=== PATIENT | female | born 1940 | race Caucasian/White ===

== ENCOUNTER 2017-09-11 16:03 | Inpatient (IN) | payer MEDICARE ==
[~2017-09-11] VITALS: Ht 154.9 cm; Wt 160.1 kg
[2017-09-11] MEDS ORDERED: ARMTHY90PT PO (16:21)
[2017-09-11] MEDS ORDERED: ALBUTEROL/IPRATROPIUM 3 ML NEB NEB ONE (16:35)
--- NOTE | 2017-09-11 16:35 | ER Report ---
History and Physical Time Seen By MD: 16:22 Hx. of Stated Complaint: PATIENT REPORTS DIARRHEA FOR THE LAST 2 MONTHS. SHE DENIES NAUSEA OR VOMITING HPI/ROS CHIEF COMPLAINT: Shortness of breath and diarrhea HISTORY OF PRESENT ILLNESS: This is a 77-year-old female who presents to the emergency department via EMS for shortness of breath and diarrhea. Patient is morbidly obese, states over the last 3 months she's had intermittent diarrhea however in the last 4 days she's had liquid diarrhea which she is a tripping to her furosemide that she started several months ago. Patient also states that she 's had increased shortness of breath over the last several months she feels secondary to taking the furosemide as well. Patient states that she has had an increase in shortness of breath over the last several days as well, no chest pain, no nausea or vomiting. No headaches. Patient also states that she has increased lower extremity edema secondary to the furosemide, with blisters on her lower extremities. No fevers, no aches or chills. REVIEW OF SYSTEMS: Constitutional: No fever, no chills. Eyes: No discharge. ENT: No sore throat. Cardiovascular: No chest pain, no palpitations. Respiratory: As above. Gastrointestinal: As above. Genitourinary: No hematuria. Musculoskeletal: No back pain. Skin: As above. Neurological: No headache. Allergies: Coded Allergies: Penicillins (Verified Allergy, Unknown, 09/11/17) DOESN'T REMEMBER REACTION Home Meds Reported Medications Thyroid (ARMOUR THYROID) 90 Mg Tab, 90 MG PO QDAY, TAB 09/11/17 Past Medical/Surgical History Patient has a past medical and surgical history of some undiagnosed respiratory disease, chronic diarrhea, hypothyroidism, morbidly obese. Reviewed Nurses Notes: Yes Hx Substance Use Disorder: No Hx Alcohol Use: No Constitutional Vital Sign - Last 24 Hours 09/11/17 09/11/17 09/11/17 09/11/17 16:05 16:05 16:33 16:50 Temp 97.9 Pulse 83 75 72 Resp 20 18 B/P (MAP) 144/73 144/73 (96) Pulse Ox 91 97 O2 Delivery Room Air 09/11/17 09/11/17 09/11/17 09/11/17 16:50 16:55 17:03 17:33 Pulse 73 70 70 Resp 18 26 Pulse Ox 98 98 99 O2 Delivery Nasal Cannula O2 Flow Rate 8.0 09/11/17 09/11/17 09/11/17 09/11/17 17:38 17:53 18:08 18:23 Pulse 69 71 69 69 Resp 13 23 17 Pulse Ox 96 98 98 09/11/17 09/11/17 09/11/17 09/11/17 18:38 18:52 18:53 19:08 Pulse 68 71 70 Resp 22 28 B/P (MAP) 160/94 (116) Pulse Ox 95 09/11/17 09/11/17 19:23 19:30 Pulse 70 69 Resp 13 23 Pulse Ox 96 96 Intake and Output 09/11/17 09/11/17 09/12/17 15:00 23:00 07:00 Intake Total 1000 ml Balance 1000 ml Physical Exam General Appearance: The patient is alert, has no immediate need for airway protection and no signs of toxicity, patient's is pursing lips however not in respiratory distress, she is morbidly obese and has a strong odor of stool and yeast. Eyes: Pupils equal and round no pallor or injection, icterus to both sclera. ENT, Mouth: Mucous membranes are moist. Respiratory: There are no retractions, lungs are clear to auscultation. Cardiovascular: Regular rate and rhythm, no murmurs, clicks or rubs. Heart sounds very distant. Gastrointestinal: Morbidly obese abdomen, soft and nontender distant but active bowel sounds. No masses or abdominal bruits. Neurological: Alert and oriented 4. Moving all extremities. Following all commands. No focal neuro deficits. Skin: Warm and dry, no rashes. Poor distal circulation to the lower extremities , nonpitting edema with blanchable, non-oozing blisters to the anterior surface of the lower legs bilaterally. Erythema to the lower extremities bilaterally, no cellulitis. Musculoskeletal: Neck is supple non tender. Extremities are nontender, nonswollen and with limited range of motion due to the size of the lower extremities.. DIFFERENTIAL DIAGNOSIS: After history and physical exam differential diagnosis was considered for shortness of breath including but not limited to pulmonary infectious process, COPD, asthma, pulmonary embolus and congestive heart failure. Medical Decision Making Data Points Result Diagram: 09/11/17 1700 09/11/17 1558 Laboratory Hematology Test 09/11/17 15:58 09/11/17 17:00 09/11/17 19:07 Sodium Level 146 mmol/L (137-145) Potassium Level 3.9 mmol/L (3.5-5.0) Chloride Level 104 mmol/L (98-107) Carbon Dioxide Level 22 mmol/L (22-31) Blood Urea Nitrogen 21 mg/dl (7-18) Creatinine 2.10 mg/dl (0.52-1.04) Glomerular Filtration Rate Calc 23.0 Random Glucose 134 mg/dl (75-110) Calcium Level 9.2 mg/dl (8.4-10.2) Total Bilirubin 5.7 mg/dl (0.2-1.3) Aspartate Amino Transf (AST/SGOT) 32 U/L (0-35) Alanine Aminotransferase (ALT/SGPT) 18 U/L (0-56) Alkaline Phosphatase 101 U/L (0-126) Total Protein 7.4 g/dl (6.3-8.2) Albumin 3.8 g/dl (3.5-5.0) Red Blood Count 6.17 M/uL (4.17-5.56) Mean Corpuscular Volume 88.6 fL (80.0-96.0) Mean Corpuscular Hemoglobin 29.3 pg (26.0-33.0) Mean Corpuscular Hemoglobin Concent 33.1 g/dL (32.0-36.0) Red Cell Distribution Width 20.5 % (11.5-14.5) Mean Platelet Volume 11.4 fL (7.2-11.1) Neutrophils (%) (Auto) 78.6 % (39.4-72.5) Lymphocytes (%) (Auto) 12.1 % (17.6-49.6) Monocytes (%) (Auto) 8.6 % (4.1-12.4) Eosinophils (%) (Auto) 0.2 % (0.4-6.7) Basophils (%) (Auto) 0.5 % (0.3-1.4) Nucleated RBC Relative Count (auto) 0.2 /100WBC Neutrophils # (Auto) 7.5 K/uL (2.0-7.4) Lymphocytes # (Auto) 1.2 K/uL (1.3-3.6) Monocytes # (Auto) 0.8 K/uL (0.3-1.0) Eosinophils # (Auto) 0.0 K/uL (0.0-0.5) Basophils # (Auto) 0.0 K/uL (0.0-0.1) Nucleated RBC Absolute Count (auto) 0.02 K/uL Peripheral Blood Smear No Y/N B-Type Natriuretic Peptide 477 pg/ml (0-100) Troponin I 0.054 ng/ml Chemistry Test 09/11/17 15:58 09/11/17 17:00 09/11/17 19:07 Glomerular Filtration Rate Calc 23.0 Calcium Level 9.2 mg/dl (8.4-10.2) Total Bilirubin 5.7 mg/dl (0.2-1.3) Aspartate Amino Transf (AST/SGOT) 32 U/L (0-35) Alanine Aminotransferase (ALT/SGPT) 18 U/L (0-56) Alkaline Phosphatase 101 U/L (0-126) Total Protein 7.4 g/dl (6.3-8.2) Albumin 3.8 g/dl (3.5-5.0) White Blood Count 9.6 k/uL (4.5-11.0) Red Blood Count 6.17 M/uL (4.17-5.56) Hemoglobin 18.1 g/dL (12.0-16.0) Hematocrit 54.7 % (34.0-47.0) Mean Corpuscular Volume 88.6 fL (80.0-96.0) Mean Corpuscular Hemoglobin 29.3 pg (26.0-33.0) Mean Corpuscular Hemoglobin Concent 33.1 g/dL (32.0-36.0) Red Cell Distribution Width 20.5 % (11.5-14.5) Platelet Count 123 K/uL (150-450) Mean Platelet Volume 11.4 fL (7.2-11.1) Neutrophils (%) (Auto) 78.6 % (39.4-72.5) Lymphocytes (%) (Auto) 12.1 % (17.6-49.6) Monocytes (%) (Auto) 8.6 % (4.1-12.4) Eosinophils (%) (Auto) 0.2 % (0.4-6.7) Basophils (%) (Auto) 0.5 % (0.3-1.4) Nucleated RBC Relative Count (auto) 0.2 /100WBC Neutrophils # (Auto) 7.5 K/uL (2.0-7.4) Lymphocytes # (Auto) 1.2 K/uL (1.3-3.6) Monocytes # (Auto) 0.8 K/uL (0.3-1.0) Eosinophils # (Auto) 0.0 K/uL (0.0-0.5) Basophils # (Auto) 0.0 K/uL (0.0-0.1) Nucleated RBC Absolute Count (auto) 0.02 K/uL Peripheral Blood Smear No Y/N B-Type Natriuretic Peptide 477 pg/ml (0-100) Troponin I 0.054 ng/ml EKG/Imaging EKG Interpretation 12 lead EKG: Time of EKG 1635. Rhythm: Normal sinus rhythm, ventricular rate 74 bpm. [place]: Right ventricular hypertrophy. QRS: normal ST segments: Possible incomplete right bundle branch block. Also questionable ST depression in V2, the one with flattened to flip T waves in V2, V3. No previous EKGs for comparison. 12 lead EKG: Repeat EKG time 1901. Rhythm: Sinus rhythm with a first-degree AV block. [place]: Right ventricular hypertrophy. QRS: normal ST segments: Possible incomplete right bundle branch block. Also questionable ST depression in V2, the one with flattened to flip T waves in V2, V3 Imaging EXAMINATION: Chest 2 Views HISTORY: Shortness of breath. COMPARISON: None. FINDINGS: Technically limited exam due to patient body habitus. Left basilar opacity may represent atelectasis or infiltrate. There are small bilateral pleural effusions. Cardiac enlargement, with mild central pulmonary vascular congestion. No evidence of angelina pulmonary edema. No pneumothorax. Aortic calcification. IMPRESSION: 1. Small pleural effusions with left basilar atelectasis or infiltrate. 2. Cardiac enlargement with mild central pulmonary vascular congestion. No angelina pulmonary edema. Report Dictated By: Kirk Macedo MD at 09/11/2017 6:11 PM Report E-Signed By: Kirk Macedo MD at 09/11/2017 6:13 PM [id number] ED Course/Re-evaluation Clinical Indication for ER IV: IV Access ED Course The patient was admitted to room. A history and physical were obtained. Differential diagnoses were considered. An IV was started. A CBC, CMP, troponin , BNP, stool studies and UA were ordered. CBC showing hemoglobin 18.1, hematocrit 54.7, BUN 21 creatinine 2.10, blood sugar 134. 1st troponin 0.060, repeat troponin 0.054. BNP 477. Chest x-ray showing pulmonary congestion, cardiomegaly.As well as small pleural effusions. Patient was given 324 mg baby aspirin. EKG showing normal sinus rhythm, with a possible incomplete right bundle branch block, no ST depression or elevation identified, there are flattened and flipped T waves in V2 and 3. No previous EKG comparison. Unable to collect stool samples. I did review these results with the patient and her sister. I did tell patient that she does have some heart strain probably related to the congestive heart failure right sided heart strain. With the elevated BNP, BUN and creatinine I did tell the patient I was concerned that the heart strain could continue to worsen therefore I feel an admission would be in her best interest. Patient was in agreement with this. I did speak with Dr. Beckford the hospitalist, he is accepted the patient into his services. Patient will be admitted to the medical unit for congestive heart failure. 09/11/2017 8:15:18 pm I did speak with Dr. Beckford the hospitalist on-call he has agreed to admit the patient to the medical unit following the repeat troponin down from 0.060 now down to 0.054. Decision to Disposition Date: Sep 11, 2017 Decision to Disposition Time: 20:14 Depart Departure Latest Vital Signs Vital Signs Date Time Temp Pulse Resp B/P (MAP) Pulse Ox O2 Delivery O2 Flow Rate FiO2 09/11/17 19:30 69 23 96 09/11/17 18:52 160/94 (116) 09/11/17 16:50 Nasal Cannula 8.0 09/11/17 16:05 97.9 Impression: Primary Impression: Congestive heart failure Additional Impression: Diarrhea Condition: Improved Disposition: Admitted from ER Problem Qualifiers Primary Impression: Congestive heart failure Heart failure type: right-sided Heart failure chronicity: unspecified Qualified Codes: I50.810 - Right heart failure, unspecified Additional Impression: Diarrhea Diarrhea type: unspecified type Qualified Codes: R19.7 - Diarrhea, unspecified GURMEET JANSEN WELLNESS MANAGER-BC Sep 11, 2017 16:34
[2017-09-11 17:32] LABS: PLATELET COUNT, AUTOMATED 123 K/uL (150-450)
--- NOTE | 2017-09-11 17:50 | EKG ---
FACILITY: [facility] PATIENT NAME: DARÍO AGUIRRE : [id number] MR: [id number] V: [id number] EXAM DATE: ORDERING PHYSICIAN: GURMEET JANSEN TECHNOLOGIST: RODO Ramos Reason : Blood Pressure : / mmHG Vent. Rate : 074 BPM Atrial Rate : 074 BPM P-R Int : 204 ms QRS Dur : 124 ms QT Int : 430 ms P-R-T Axes : 029 136 142 degrees QTc Int : 477 ms Normal sinus rhythm Right ventricular hypertrophy Lateral infarct , age undetermined Inferior injury pattern ACUTE CT Abnormal ECG No previous ECGs available Confirmed by NUVIA REID ([id number]) on 09/12/2017 2:49:38 PM Referred By: IZZY Confirmed By:NUVIA REID
[2017-09-11] MEDS ORDERED: ASPIRIN 81 MG CHEW PO ONE (18:05)
--- NOTE | 2017-09-11 18:17 | RADIOLOGY IMAGING REPORT ---
FACILITY: [facility] - [place] PATIENT NAME: Jose Camarena : 1940 MR: [id number] V: [id number] EXAM DATE: ORDERING PHYSICIAN: GURMEET JANSEN TECHNOLOGIST: Location: [facility] [place] Patient: Jose Camarena : 1940 Visit/Account:[id number] Date of Sevice: 09/11/2017 EXAMINATION: Chest 2 Views HISTORY: Shortness of breath. COMPARISON: None. FINDINGS: Technically limited exam due to patient body habitus. Left basilar opacity may represent atelectasis or infiltrate. There are small bilateral pleural effus ions. Cardiac enlargement, with mild central pulmonary vascular congestion. No evidence of angelina pulmonary edema. No pneumothorax. Aortic calcification. IMPRESSION: 1. Small pleural effusions with left basilar atelectasis or infiltrate. 2. Cardiac enlargement with mild central pulmonary vascular congestion. No angelina pulmonary edema. Report Dictated By: Kirk Macedo MD at 09/11/2017 6:11 PM Report E-Signed By: Kirk Macedo MD at 09/11/2017 6:13 PM [id number]
[2017-09-11] MEDS ORDERED: EMS NS 0.9%(*) 1000 ML BAG 1,000 ML IV ONE (19:40)
[2017-09-11 21:20] VITALS: BP 156/107
--- NOTE | 2017-09-11 21:36 | EKG ---
FACILITY: [facility] - [place] PATIENT NAME: DARÍO AGUIRRE : [id number] MR: [id number] V: [id number] EXAM DATE: ORDERING PHYSICIAN: GURMEET JANSEN TECHNOLOGIST: SYDNEY Test Reason : ELEVATED TROPONIN Blood Pressure : / mmHG Vent. Rate : 071 BPM Atrial Rate : 071 BPM P-R Int : 216 ms QRS Dur : 122 ms QT Int : 696 ms P-R-T Axes : 031 143 137 degrees QTc Int : 756 ms Sinus rhythm with 1st degree AV block Right ventricular hypertrophy Lateral infarct (cited on or before 11-SEP-2017) Inferior injury pattern ACUTE ND Abnormal ECG When compared with ECG of 11-SEP-2017 16:35, QT has lengthened Confirmed by NUVIA REID ([id number]) on 09/12/2017 2:50:19 PM Referred By: Confirmed By:NUVIA REID
[2017-09-11] MEDS ORDERED: ONDANSETRON 4 MG/2 ML VIAL IVP PRN (22:20)
[2017-09-11] MEDS ORDERED: [UNRECOGNIZED DRUG - OTHER] TP SCH (22:20)
[2017-09-11] MEDS ORDERED: FUROSEMIDE 40 MG/4 ML VIAL IVP ONE (22:20)
[2017-09-11] MEDS ORDERED: ACETAMINOPHEN 325 MG TAB PO PRN (22:20)
[2017-09-11] MEDS ORDERED: NYSTATIN 100,000 U/GM PWD 15GM ONE (22:39)
--- NOTE | 2017-09-12 00:08 | History & Physical ---
History of Present Illness Chief Complaint Shortness of breath and diarrhea History of Present Illness Mrs. Camarena is a 77-year-old female with PMH of Hypothyroidism, Morbid Obesity who presented to the emergency department via EMS for shortness of breath and diarrhea. Patient mentioned that over the last 3 months she has been having intermittent diarrhea however in the last 4 days she had liquid diarrhea. Patient also stated that she's had increased shortness of breath over the last several months. Her shortness of breath over the last several days got worse without chest pain, no nausea or vomiting, no headaches, no fevers, or chills. Patient also stated that her lower extremity edema got worse, with blisters on her lower extremities. She stopped her Lasix because she thought her Lasix was causing these symptoms. Initial ER evaluation revealed her hemoglobin 18.1, hematocrit 54.7, BUN 21 creatinine 2.10, blood sugar 134. Her 1st troponin was 0.060 and repeat troponin was down to 0.054 and BNP 477. Chest x-ray showing pulmonary congestion , cardiomegaly with small pleural effusions with left basilar atelectasis or infiltrate but no angelina pulmonary edema. Patient was given 324 mg baby aspirin. EKG showing normal sinus rhythm, with a possible incomplete right bundle branch block, no ST depression or elevation identified, there are flattened and flipped T waves in V2 and 3. I discussed the case with the ER-MD and admitted the patient for further evaluation and management. History Home Meds Reported Medications Thyroid (ARMOUR THYROID) 90 Mg Tab, 90 MG PO QDAY, TAB 09/11/17 Allergies: Coded Allergies: Penicillins (Verified Allergy, Unknown, 09/11/17) DOESN'T REMEMBER REACTION Patient History: FH: diabetes mellitus MOTHER BROTHER OR SISTER FH: obesity BROTHER OR SISTER BROTHER OR SISTER BROTHER OR SISTER FH: skin cancer BROTHER OR SISTER Hx Smoking: No Caffeine Intake: Soda Caffeine/Cups Per Day: OCCASSIONAL Hx Alcohol Use: No Hx Substance Use Disorder: No Review of Systems Constitutional: Other (morbid obesity), No Fever, No Weight Loss, No Weight Gain, No Chills Neurological: No Confusion, No Weakness, No Dizziness Cardiovascular: No Chest Pain, No Palpitations Respiratory: Shortness of Breath, No Cough Gastrointestinal: Nausea, No Vomiting, Diarrhea, No Constipation, No Abdominal Pain Genitourinary: No Dysuria, No Hematuria Musculoskeletal: Impaired Mobility, No Pain, No Sprain, No Strain Psychiatric: No Depression, No Anxiety Exam Vital Signs Vital Signs Date Time Temp Pulse Resp B/P (MAP) Pulse Ox O2 Delivery O2 Flow Rate FiO2 09/12/17 03:09 98.6 73 18 129/75 (93) 93 Nasal Cannula 4.0 General Appearance: Alert, Awake, No Acute Distress, Afebrile Neuro: No Gross deficits Eyes: PERRLA ENT: Normal Neck: Other (large neck circumfrence) Cardiovascular: Normal Rhythm & Peripheral Pulses Respiratory: Other (mild respiratory distress) GI: Abd Soft and Non-Tender (obese, NT/ND, no rebound or tenderness, Generalized erythematous skin with excoriations) Extremities: Edema (with chronic skin changes with erythema) Psych: Alert & Oriented X3, Appropriate Mood & Affect Medical Decision Making Data Points Result Diagram: 09/11/17 1700 09/11/17 1558 EKG / Imaging Monitor Interpretation: Normal Sinus Rhythm Pre-Admit Course ED Medications reviewed Medical Record Review: Yes Assessment and Plan Problems: (1) Fluid overload Status: Acute Assessment & Plan: Generalized edema likely due to her R-sided heart failure I will admit this patient to medical floor for further evaluation and management I will start Lasix 80mg IV bid I will place Ann catheter I will get Echo in am I will Get BMP, BNP, Troponin in am I will start Heparin 5000units q12h for DVTP (2) CHARANJIT (acute kidney injury) Status: Acute Assessment & Plan: I will care fully use Lasix and check her kidney function closely I will get BMP in am (3) Diarrhea Status: Acute Assessment & Plan: Her diarrhea has somewhat improved I will use Imodiunm as needed (4) Fungal infection of skin of abdomen Status: Chronic Assessment & Plan: I will use Nystatin powder for her chronic yeast infection Central Venous Access Medical Necessity for Access: IV Access, Medication Administration Time Spent on Plan of Care: > 30 min Copies to: ALINE ZACARIAS Venous Thromboembolism VTE Risk Physician Assess for VTE Risk: Yes VTE Diagnostic Test 2 Days Prior to Admit: No Antithrombotics Is Pt On Any Antithrombotics?: No Exam Sepsis Risk: No Definite Risk Problem Qualifiers (1) Diarrhea: Diarrhea type: unspecified type Qualified Codes: R19.7 - Diarrhea, unspecified RED WILLIS MD Sep 12, 2017 00:08
[2017-09-12 03:09] VITALS: BP 129/75
[2017-09-12 06:21] LABS: PLATELET COUNT, AUTOMATED 113 K/uL (150-450)
[2017-09-12] MEDS ORDERED: FUROSEMIDE 40 MG/4 ML VIAL IVP SCH (09:00)
[2017-09-12] MEDS ORDERED: HEPARIN (PORC) 5000 UN/ML VIAL SC SCH (09:00)
[2017-09-12 09:14] VITALS: BP 137/78
[2017-09-12] MEDS: THYROID 60 MG TAB PO SCH (09:17)
[2017-09-12] MEDS ORDERED: ENOXAPARIN 40 MG/0.4ML SYR SC ONE (09:50)
[2017-09-12] MEDS: NYSTATIN 100,000 U/GM PWD 15GM TP SCH ×2 (11:23→20:37)
[2017-09-12 11:24] VITALS: BP 135/81
--- NOTE | 2017-09-12 12:37 | Hospitalist Progress Note ---
Subjective Progress Notes Subjective This patient was admitted for diarrhea and shortness of breath. She had no acute issues overnight. Patient Complains of: Cardiovascular: No: Chest Pain Respiratory: No: Shortness of Breath Physical Exam Vital Signs Date Time Temp Pulse Resp B/P (MAP) Pulse Ox O2 Delivery O2 Flow Rate FiO2 09/12/17 11:24 98.2 71 20 135/81 (99) 92 Nasal Cannula 4.0 Intake and Output 09/13/17 07:00 Intake Total 240 ml Balance 240 ml Intake Oral 240 ml Neuro: No Gross deficits Cardiovascular: Regular Rate and Rhythm Respiratory: Clear to Auscultation GI: Soft and Non-Tender Extremities: Other (Bilateral weeping edema. There is erythema about both lower extremities, but does not appear to be infected.) Result Diagram: 09/12/17 0550 09/12/17 0550 Monitor Interpretation: Normal Sinus Rhythm Assessment and Plan Problems: (1) Peripheral edema Assessment & Plan: She does have diffuse peripheral edema. She did not respond to Lasix overnight. Her BNP is elevated, but an echocardiogram is pending. We will hold on further attempts at diuresis until those results are available. (2) Acute renal failure Assessment & Plan: Her creatinine is elevated, but we have no baseline to compare. We will repeat a chemistry panel in the morning. (3) Diarrhea Status: Acute Assessment & Plan: Her diarrhea has improved with Imodium. (4) Fungal infection of skin of abdomen Status: Chronic Assessment & Plan: She has been placed on Nystatin powder. (5) Failure to thrive Assessment & Plan: It is reported that she is limited to a recliner at home. She was also soiled with urine and feces at admission. A social work consult has been ordered. (6) Morbid obesity with BMI of 60.0-69.9, adult Central Venous Access Medical Necessity for Access: IV Access, Medication Administration Exam Sepsis Risk: No Definite Risk Problem Qualifiers (1) Diarrhea: Diarrhea type: unspecified type Qualified Codes: R19.7 - Diarrhea, unspecified NUVIA REID DO Sep 12, 2017 12:37
[2017-09-12 12:59] VITALS: Ht 154.9 cm; Wt 160.1 kg
--- NOTE | 2017-09-12 13:12 | Medical Nutrition Therapy ---
Nutrition Anthropometrics Height (Inches): 61.00 Height (Calculated Centimeters: 154.967701 Weight (Pounds): 365 Weight (Calculated Kilograms): 165.561 [place] Nutrition Score: Adequate [place] Nutrition Risk Score: 13 Dietary Referral Nutrition Risk Factors: Nutrition Risk Comment: Physical Findings Physical Appearance: Morbidly Obese 40+ Skin Appearance Skin Appearance: Edema Edema Location Modifier: Both Edema Location: Leg Type of Edema: Degree of Edema: Gastrointestinal Symptoms GI Symtoms: Diarrhea Tube Present: Bowel Sounds: Recent Bowel Pattern: Diarrhea, Incontinent Stool Characteristics: Nutrition/Food History No Significant Nutr. HX Nutritional Diagnosis Nutritional Risk Acuity 1: Acute/ES Renal Nutritional Risk Acuity 3: Morbid Obesity Past Medical History: Hypothyroidism, Morbid Obesity, Heart failure Nutritional Acuity: 1-High Nutrition Diagnosis: Decreased Nutrient Needs, Over-weight/Obesity Nutrition Etiology: Excesssive Nutr. Intake, Physiological Causes Nutrition Problem/Etiology/Sym: Overweight/Obesity related to excessive energy intake and physical inactivity AEB BMI of 69.0 Decreased Nutrient Needs r/t heart failure AEB Conditions associated with a diagnosis or treatment that require a specific type and/or amount of nutrient, e.g., heart failure (sodium, fluid) Energy Requirement: 1800 ([place]-St Jeor: Adjusted BW X 1.3) Protein Requirement: 66 (Adjusted BW Kg X .7) Diet Type: CHF Diet Nutrition Intervention: Cont diet as ordered Nutrition Monitoring & Eval Nutrition Goals: Eat 50-100% Meal RD Patient Assessment Time: [address] Assessment Type: RD Assessment Patient Nutrition Acuity: 1-High Follow Up Date: Sep 14, 2017 Nutritional Comment: 09/12 Pt admitted with LE edema and ARF. Alb 3.8, BNP 399, High BUN/Creat. Class III obesity with BMI of 69.0. Pt receiving CHF diet with only reported intake of soda. Follow labs, intake, clinical progression, etc. -JUAN MANUEL ARAGON Sep 12, 2017 13:12
[2017-09-12 14:25] VITALS: BP 128/75
[2017-09-12 19:28] VITALS: BP 128/66
[2017-09-13 03:48] VITALS: BP 120/76
[2017-09-13 06:10] LABS: PLATELET COUNT, AUTOMATED 101 K/uL (150-450)
[2017-09-13] MEDS: NYSTATIN 100,000 U/GM PWD 15GM TP SCH (08:28)
[2017-09-13] MEDS: THYROID 60 MG TAB PO SCH (08:31)
[2017-09-13 08:42] VITALS: BP 131/78
[2017-09-13] MEDS ORDERED: BUMETANIDE 1 MG/4 ML SDV IVP ONE (09:45)
[2017-09-13 11:10] VITALS: BP 142/87
--- NOTE | 2017-09-13 11:46 | Hospitalist Progress Note ---
Subjective Progress Notes Subjective The patient reports little appetite and continued chronic SOB. Physical Exam Vital Signs Date Time Temp Pulse Resp B/P (MAP) Pulse Ox O2 Delivery O2 Flow Rate FiO2 09/13/17 11:17 97.5 87 95 Nasal Cannula 2.0 09/13/17 11:10 16 142/87 (105) Intake and Output 09/14/17 06:59 Intake Total 240 ml Balance 240 ml Intake Oral 240 ml General Appearance: Alert, Awake, No Acute Distress Neuro: No Gross deficits Cardiovascular: Regular Rate and Rhythm Respiratory: Clear to Auscultation Extremities: Edema (evidence of chronic edema with hyperkeratosis/undulation of skin. Dressings over lower shins for weeping of fluid) Result Diagram: 09/13/17 0550 09/13/17 0550 Monitor Interpretation: Normal Sinus Rhythm Assessment and Plan Problems: (1) Peripheral edema Assessment & Plan: She does have chronic diffuse peripheral edema that is likely multifactorial in cause. She has erythrocytosis, likely from chronic hypoxia. She has CKD. She chronically sits with legs dependant. Her BNP is elevated, but refused the echocardiogram. TSH is elevated. Urine protein/Cr testing is pending. Will continue diuresis with prn Bumex. See below. (2) Acute renal failure Assessment & Plan: Her creatinine is elevated, but we have no baseline to compare. Creatinine is trending down. Will follow. (3) Hypothyroid Status: Chronic Assessment & Plan: TSH is 14.7. Per her pharmacy, she didn't receive any amour thyroid for March and April. Then she was increased to 90mg. She received prescriptions in May, June and August. Will continue 90mg and she needs to get a TSH done in 6 weeks. (4) Diarrhea Status: Acute Assessment & Plan: She believes it is related to Lasix. It has resolved since admission. Will follow. If it recurs, then will do formal testing. 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 (6) Failure to thrive Assessment & Plan: It is reported that she is limited to a recliner at home and hasn't been able to ambulate for a couple of months. She was also soiled with urine and feces at admission. A social work consult has been ordered. OT/ PT are following. (7) Morbid obesity with BMI of 60.0-69.9, adult Central Venous Access Medical Necessity for Access: IV Access, Medication Administration Exam Sepsis Risk: No Definite Risk Problem Qualifiers (1) Diarrhea: Diarrhea type: unspecified type Qualified Codes: R19.7 - Diarrhea, unspecified DEACON ORONA MD Sep 13, 2017 11:46
[2017-09-13 15:11] VITALS: BP 137/91
[2017-09-13] MEDS: ENOXAPARIN 30 MG/0.3 ML SYR SC SCH (15:24)
[2017-09-13 20:52] VITALS: BP 121/74
[2017-09-14 00:08] VITALS: BP 141/90
[2017-09-14 04:34] VITALS: BP 150/73
[2017-09-14 06:04] LABS: PLATELET COUNT, AUTOMATED 111 K/uL (150-450)
[2017-09-14] MEDS: THYROID 60 MG TAB PO SCH (09:14)
[2017-09-14] MEDS: ENOXAPARIN 30 MG/0.3 ML SYR SC SCH (09:14)
[2017-09-14] MEDS: NYSTATIN 100,000 U/GM PWD 15GM TP SCH ×2 (09:15→20:38)
[2017-09-14 09:21] VITALS: BP 137/89
[2017-09-14] MEDS ORDERED: BUMETANIDE 1 MG/4 ML SDV IVP SCH (10:25)
[2017-09-14] MEDS ORDERED: BUMETANIDE 2 MG TAB PO ONE (12:10)
--- NOTE | 2017-09-14 13:23 | Hospitalist Progress Note ---
Subjective Progress Notes Subjective She reports some minor improvements. Some orthostasis when getting up to bedside , but she reports feeling much improved "once I was out of bed". Physical Exam Vital Signs Date Time Temp Pulse Resp B/P (MAP) Pulse Ox O2 Delivery O2 Flow Rate FiO2 09/14/17 09:21 98.2 76 16 137/89 (105) 89 Nasal Cannula 4.0 Intake and Output 09/15/17 06:59 Intake Total 240 ml Balance 240 ml Intake Oral 240 ml General Appearance: Alert, Awake Cardiovascular: Other (Regular with distant tones) Respiratory: Other (diminished breath sounds bilaterally) GI: Soft and Non-Tender, Other (obese) Extremities: Warm, Edema (massive both LE extending to lower abdomen) Integumentary: Generalized Fragile Skin, Other (open area with drainage over left posterior calf/candidal changes in skin folds) Psych: Alert & Oriented X3 Result Diagram: 09/14/1751409/14/17514 Monitor Interpretation: Normal Sinus Rhythm Assessment and Plan Problems: (1) Peripheral edema Assessment & Plan: She does have chronic diffuse peripheral edema that is likely multifactorial in etiology. She has erythrocytosis, likely from chronic hypoxia/possible ERIC. She has CKD. She also chronically sits with legs dependant. Her BNP is elevated, but has refused the echocardiogram. TSH is elevated. Urine protein/Cr ratio is elevated, but not into nephrotic range. Will continue diuresis with daily Bumex. See below. (2) Acute renal failure Assessment & Plan: Her creatinine is elevated, but we have no baseline to compare. Creatinine is trending down even with the diuresis. Will follow. (3) Hypothyroid Status: Chronic Assessment & Plan: TSH is 14.7. Per her pharmacy, she didn't receive any amour thyroid for March and April. Then she was increased to 90mg. She received prescriptions in May, June and August. Will continue 90mg and she will need to get a TSH done in 6 weeks. (4) Diarrhea Status: Acute Assessment & Plan: She believes it is related to Lasix. It has resolved since admission. Will follow. If it recurs, then will do formal testing. 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 (6) Failure to thrive Assessment & Plan: It is reported that she is limited to a recliner at home and hasn't been able to ambulate for a couple of months. She was also soiled with urine and feces at admission. A social work consult has been ordered. OT/ PT are following. (7) Morbid obesity with BMI of 60.0-69.9, adult Central Venous Access Medical Necessity for Access: IV Access, Medication Administration Exam Sepsis Risk: No Definite Risk Problem Qualifiers (1) Diarrhea: Diarrhea type: unspecified type Qualified Codes: R19.7 - Diarrhea, unspecified JHOANA BEATTY MD Sep 14, 2017 13:22
--- NOTE | 2017-09-14 16:30 | Medical Nutrition Therapy ---
Nutrition Anthropometrics Height (Inches): 61.00 Height (Calculated Centimeters: [phone] Weight (Pounds): 366 Weight (Calculated Kilograms): 166.072 [place] Nutrition Score: Probably Inadequate [place] Nutrition Risk Score: 13 Dietary Referral Nutrition Risk Factors: Nutrition Risk Comment: Physical Findings Physical Appearance: Morbidly Obese 40+ Skin Appearance Skin Appearance: Edema Edema Location Modifier: Both Edema Location: Generalized Type of Edema: Degree of Edema: 1+ Gastrointestinal Symptoms GI Symtoms: Appetite Changes, Hemorrhoids Tube Present: Bowel Sounds: Recent Bowel Pattern: Diarrhea, Incontinent Stool Characteristics: Nutritional Diagnosis Nutritional Risk Acuity 1: Acute/ES Renal, Fail to Thrive Nutritional Risk Acuity 3: Morbid Obesity Past Medical History: Hypothyroidism, Morbid Obesity, Heart failure, CHARANJIT, failure to thirve Nutritional Acuity: 1-High Nutrition Diagnosis: Decreased Nutrient Needs, Over-weight/Obesity Nutrition Etiology: Excesssive Nutr. Intake, Physiological Causes Nutrition Problem/Etiology/Sym: Overweight/Obesity related to excessive energy intake and physical inactivity AEB BMI of 69.0 Decreased Nutrient Needs r/t heart failure AEB Conditions associated with a diagnosis or treatment that require a specific type and/or amount of nutrient, e.g., heart failure (sodium, fluid) Energy Requirement: 1800 (Dobbins-St Jeor: Adjusted BW X 1.3) Protein Requirement: 66 (Adjusted BW Kg X .7) Diet Type: CHF Diet Nutrition Intervention: Cont diet as ordered Drug: Diuretics Nutrition Monitoring & Eval RD Patient Assessment Time: [address] Assessment Type: RD Re-Assessment Patient Nutrition Acuity: 1-High Follow Up Date: Sep 17, 2017 Nutritional Comment: 09/12 Pt admitted with LE edema and ARF. Alb 3.8, BNP 399, High BUN/Creat. Class III obesity with BMI of 69.0. Pt receiving CHF diet with only reported intake of soda. Follow labs, intake, clinical progression, etc. -DRT 09/14 Pt continues on CHF diet consuming 50% at breakfast and 0% at lunch. The patient reports little appetite and continued chronic SOB. Pt has elevated H/H, creatinine (1.2), and BUN (26). Will continue to monitor pt progress and encourage intake. -THELMA MORRISON Sep 14, 2017 15:17
[2017-09-14 17:07] VITALS: BP 133/83
[2017-09-14 20:28] VITALS: BP 136/90
[2017-09-15] VITALS: BP 133/78
[2017-09-15 06:19] LABS: PLATELET COUNT, AUTOMATED 112 K/uL (150-450)
[2017-09-15] MEDS ORDERED: BUMETANIDE 2 MG TAB PO SCH (09:00)
[2017-09-15] MEDS: THYROID 60 MG TAB PO SCH (09:24)
[2017-09-15] MEDS: ENOXAPARIN 30 MG/0.3 ML SYR SC SCH (09:25)
[2017-09-15 09:30] VITALS: BP 127/70
--- NOTE | 2017-09-15 11:46 | Hospitalist Progress Note ---
Subjective Progress Notes Subjective The patient is without any specific complaints. Staff reporting that she is not eating much. Physical Exam Vital Signs Date Time Temp Pulse Resp B/P (MAP) Pulse Ox O2 Delivery O2 Flow Rate FiO2 09/15/17 09:30 93 Nasal Cannula 4.0 09/15/17 09:30 97.6 72 18 127/70 (89) Intake and Output 09/16/17 06:59 Intake Total 480 ml Balance 480 ml Intake Oral 480 ml General Appearance: Alert, Awake, No Acute Distress (Blunted affect.) GI: Soft and Non-Tender Extremities: Edema (Skin changes on lower leg c/w chronic edema (hyperketosis/ irregular)) Result Diagram: 09/15/17 0538 09/15/17 05 Monitor Interpretation: Normal Sinus Rhythm Assessment and Plan Problems: (1) Peripheral edema Assessment & Plan: She does have chronic diffuse peripheral edema that is likely multifactorial in etiology. She has erythrocytosis, likely from chronic hypoxia/possible ERIC. She has CKD. She also chronically sits with legs dependant. Her BNP is elevated, but has refused the echocardiogram. TSH is elevated. Urine protein/Cr ratio is elevated, but not into nephrotic range. Will continue diuresis with Bumex and increase to twice daily. See below. (2) CHF exacerbation Status: Acute Assessment & Plan: BNP is elevated. She is getting diuresis. Unable to determine what type of heart failure because she has refused the echo. See above. (3) Acute renal failure Assessment & Plan: Her creatinine is elevated, but we have no baseline to compare. Creatinine is trending down even with the diuresis. Will follow. (4) Hypothyroid Status: Chronic Assessment & Plan: TSH is 14.7. Per her pharmacy, she didn't receive any amour thyroid for March and April. Then she was increased to 90mg. She received prescriptions in May, June and August. Will continue 90mg and she will need to get a TSH done in 6 weeks. (5) Diarrhea Status: Acute Assessment & Plan: She believes it is related to Lasix. It has resolved since admission. Will follow. If it recurs, then will do formal testing. (6) Depression Status: Acute Assessment & Plan: She may have a h/o schizoaffective disorder vs schizophrenia , per family. She has a very flat affect. Will start Effexor and Remeron ( help with appetite, also) (7) Total bilirubin, elevated Status: Acute Assessment & Plan: Etiology unclear. It trending down. Will get a direct and indirect bilirubin. Abdominal exam is benign. (8) Failure to thrive Assessment & Plan: It is reported that she is limited to a recliner at home and hasn't been able to ambulate for a couple of months. She was also soiled with urine and feces at admission. Social work has arranged the patient go to [facility], possibly tomorrow. OT/PT are following. She isn't eating well, so will check a pre-albumin. See below. 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 (10) Morbid obesity with BMI of 60.0-69.9, adult Central Venous Access Medical Necessity for Access: IV Access, Medication Administration Exam Sepsis Risk: No Definite Risk Problem Qualifiers (1) CHF exacerbation: Heart failure type: unspecified Qualified Codes: I50.9 - Heart failure, unspecified (2) Diarrhea: Diarrhea type: unspecified type Qualified Codes: R19.7 - Diarrhea, unspecified DEACON ORONA MD Sep 15, 2017 11:45
[2017-09-15 12:17] VITALS: BP 131/76
[2017-09-15] MEDS: NYSTATIN 100,000 U/GM PWD 15GM TP SCH ×2 (12:26→20:22)
[2017-09-15] MEDS: BUMETANIDE 2 MG TAB PO SCH (14:06)
[2017-09-15] MEDS: VENLAFAXINE REG 37.5 MG TAB PO SCH (14:07)
[2017-09-15 14:54] VITALS: BP 114/74
[2017-09-15 19:00] VITALS: BP 141/87
[2017-09-15] MEDS ORDERED: MIRTAZAPINE 15 MG TAB PO SCH ×2 (21:00)
[2017-09-15 23:00] VITALS: BP 134/97
[2017-09-16 03:00] VITALS: BP 140/97
[2017-09-16 08:18] VITALS: BP 133/87
[2017-09-16] MEDS ORDERED: VENL37.514 PO (08:48)
[2017-09-16] MEDS ORDERED: NYST15PO12 TP (08:48)
[2017-09-16] MEDS ORDERED: MIRT-22 PO (08:48)
[2017-09-16] MEDS ORDERED: BUM2 PO (08:48)
--- NOTE | 2017-09-16 08:59 | Hospitalist Depart ---
Discharge Summary Reason for Hosp/Final Diag: (1) Peripheral edema Hospital Course & Plan: She does have chronic diffuse peripheral edema that is likely multifactorial in etiology. She has erythrocytosis, likely from chronic hypoxia/possible ERIC. She has CKD. She also chronically sits with legs dependant. Her BNP is elevated, but has refused the echocardiogram. TSH is elevated. Urine protein/Cr ratio is elevated, but not into nephrotic range. Will continue diuresis with Bumex. See below. (2) CHF exacerbation Status: Acute Hospital Course & Plan: BNP is elevated. Troponin was in the indeterminant region secondary to CHF and ARF. She is getting diuresis. Unable to determine what type of heart failure because she has refused the echo. See above. (3) Acute renal failure Hospital Course & Plan: Her creatinine is elevated, but we have no baseline to compare. Creatinine is trending down with the diuresis. Will follow. (4) Hypothyroid Status: Chronic Hospital Course & Plan: TSH is 14.7. Per her pharmacy, she didn't receive any amour thyroid for March and April. Then she was increased to 90mg. She received prescriptions in May, June and August. Will continue 90mg and she will need to get a TSH done in 6 weeks. (5) Diarrhea Status: Acute Hospital Course & Plan: She believes it is related to Lasix. It has resolved since admission. Will follow. If it recurs, then will do formal testing. (6) Depression Status: Acute Hospital Course & Plan: She may have a h/o schizoaffective disorder vs schizophrenia, per family. She has a very flat affect. Will start Effexor and Remeron (help with appetite, also) (7) Total bilirubin, elevated Status: Acute Hospital Course & Plan: Etiology unclear. It trending down. It is mostly direct. Abdominal exam is benign. Continue to follow as an outpatient. (8) Failure to thrive Hospital Course & Plan: It is reported that she is limited to a recliner at home and hasn't been able to ambulate for a couple of months. She was also soiled with urine and feces at admission. Social work has arranged the patient go to [facility]. OT/PT are following. She isn't eating well, so will check a pre- albumin, which will need to be followed up as an outpatient. See above. 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 (10) Morbid obesity with BMI of 60.0-69.9, adult Departure Weight (Pounds): 353 Weight (Ounces): 1.0 Result Diagram: 09/15/17 0538 09/16/17 0518 Item Value Date Time White Blood Count 9.6 k/uL 09/11/17 1700 White Blood Count 10.3 k/uL 09/12/17 0550 White Blood Count 10.1 k/uL 09/13/17 0550 White Blood Count 8.7 k/uL 09/14/17 0515 White Blood Count 9.1 k/uL 09/15/17 0538 Hemoglobin 17.7 g/dL H 09/15/17 0538 Hemoglobin 17.3 g/dL H 09/14/17 0515 Hemoglobin 16.9 g/dL H 09/13/17 0550 Hemoglobin 17.5 g/dL H 09/12/17 0550 Hemoglobin 18.1 g/dL H 09/11/17 1700 Platelet Count 123 K/uL L 09/11/17 1700 Platelet Count 113 K/uL L 09/12/17 0550 Platelet Count 101 K/uL L 09/13/17 0550 Platelet Count 111 K/uL L 09/14/17 0515 Platelet Count 112 K/uL L 09/15/17 0538 Sodium Level 146 mmol/L H 09/11/17 1558 Blood Urea Nitrogen 21 mg/dl H 09/11/17 1558 Creatinine 2.10 mg/dl H 09/11/17 1558 Random Glucose 134 mg/dl H 09/11/17 1558 B-Type Natriuretic Peptide 477 pg/ml H 09/11/17 1700 Troponin I 0.060 ng/ml 09/11/17 1558 Alkaline Phosphatase 101 U/L 09/11/17 1558 Alanine Aminotransferase (ALT/SGPT) 18 U/L 09/11/17 1558 Aspartate Amino Transf (AST/SGOT) 32 U/L 09/11/17 1558 Total Bilirubin 5.7 mg/dl H 09/11/17 1558 Troponin I 0.054 ng/ml 09/11/17 1907 Troponin I 0.053 ng/ml 09/12/17 0550 B-Type Natriuretic Peptide 399 pg/ml H 09/12/17 0550 Thyroid Stimulating Hormone (TSH) 14.70 uIU/ml H 09/12/17 0550 Blood Urea Nitrogen 24 mg/dl H 09/12/17 0550 Creatinine 2.00 mg/dl H 09/12/17 0550 Blood Urea Nitrogen 25 mg/dl H 09/13/17 0550 Creatinine 1.80 mg/dl H 09/13/17 0550 Blood Urea Nitrogen 26 mg/dl H 09/14/17 0515 Creatinine 1.50 mg/dl H 09/14/17 0515 Blood Urea Nitrogen 27 mg/dl H 09/15/17 0538 Creatinine 1.50 mg/dl H 09/15/17 0538 Creatinine 1.40 mg/dl H 09/16/17 0518 Blood Urea Nitrogen 30 mg/dl H 09/16/17 0518 Direct Bilirubin 1.0 mg/dl H 09/16/17 0518 Total Bilirubin 2.1 mg/dl H 09/15/17 0538 Total Bilirubin 2.0 mg/dl H 09/16/17 0518 B-Type Natriuretic Peptide 368 pg/ml H 09/16/17 0518 Aspartate Amino Transf (AST/SGOT) 25 U/L 09/16/17 0518 Alanine Aminotransferase (ALT/SGPT) 27 U/L 09/16/17 0518 Alkaline Phosphatase 89 U/L 09/16/17 0518 Urine Random Creatinine 175.8 mg/dl 09/14/17 0449 Urine Random Total Protein 116 mg/dl H 09/14/17 0449 Imaging 09/11/17 CXR - 1. Small pleural effusions with left basilar atelectasis or infiltrate. 2. Cardiac enlargement with mild central pulmonary vascular congestion. No angelina pulmonary edema. EKG Sinus rhythm with RBBB. It was read as acute inferior [place], but that is not seen on my review of both ECG's. They are relatively unchanged from each other. The last one also has a falsely prolonged QTc Condition: Improved Discharge: Custodial Discharge Instructions Home Meds Reported Medications Thyroid (ARMOUR THYROID) 90 Mg Tab, 90 MG PO QDAY, TAB 09/11/17 Diet: Fluid Restricted Special Instructions: CMP/CBC/BNP in a week. Fluid restrict to 2 liters a day Daily weights Copies to: SP FLORES APRN CERTIFIED [employer]EWEL[employer] TECHNICIAN-C; ASHLIE YUAN MD; ALINE ZACARIAS Venous Thromboembolism Antithrombotics Is Pt On Any Antithrombotics?: No Problem Qualifiers (1) CHF exacerbation: Heart failure type: unspecified Qualified Codes: I50.9 - Heart failure, unspecified (2) Diarrhea: Diarrhea type: unspecified type Qualified Codes: R19.7 - Diarrhea, unspecified DEACON ORONA MD Sep 16, 2017 08:59
[2017-09-16] MEDS: ENOXAPARIN 30 MG/0.3 ML SYR SC SCH (09:53)
[2017-09-16] MEDS: NYSTATIN 100,000 U/GM PWD 15GM TP SCH (09:54)
[2017-09-16] MEDS: THYROID 60 MG TAB PO SCH (09:54)
[2017-09-16] MEDS: BUMETANIDE 2 MG TAB PO SCH (09:54)
[2017-09-16] MEDS: VENLAFAXINE REG 37.5 MG TAB PO SCH (09:54)
== END 2017-09-16 11:13 | DRG 292 ==
LOC: ER 16:08 → MED 20:40
PROVIDERS: ADMIT Specialist; ATTEND Specialist
DX: I50.9 Heart failure, unspecified (principal); N17.9 Acute kidney failure, unspecified; Z68.44 Body mass index [BMI] 60.0-69.9, adult; D75.1 Secondary polycythemia; R09.02 Hypoxemia; G47.33 Obstructive sleep apnea (adult) (pediatric); R62.7 Adult failure to thrive; E66.01 Morbid (severe) obesity due to excess calories; N18.9 Chronic kidney disease, unspecified; E03.9 Hypothyroidism, unspecified; K52.9 Noninfective gastroenteritis and colitis, unspecified; F32.9 Major depressive disorder, single episode, unspecified; F20.9 Schizophrenia, unspecified; B36.9 Superficial mycosis, unspecified; I45.10 Unspecified right bundle-branch block; Z88.0 Allergy status to penicillin
CPT/HCPCS: 36415; 71046; 82040; 82247; 82248; 82310; 82374; 82435; 82565; 82570; 82947; 83735; 83880; 84075; 84132; 84134; 84155; 84156; 84295; 84443; 84450; 84460; 84484; 84520; 85025; 93005; 93306; 94640; 97161; 97166; J1650; J1940; J3490

== ENCOUNTER → 2017-09-11 | Outpatient (CLI) | payer MEDICARE ==
[~2017-09-11] MED LIST: ARMTHY90PT PO; BUM2 PO; MIRT-22 PO; NYST15PO12 TP; VENL37.514 PO
[2017-09-12 12:59] VITALS: BMI 69.0
== END ==
LOC: AMB 15:39
PROVIDERS: ATTEND Nurse Practitioner
DX: R19.7 Diarrhea, unspecified (principal); R53.81 Other malaise; R06.00 Dyspnea, unspecified; R23.0 Cyanosis
CPT/HCPCS: A0425; A0427

== ENCOUNTER 2017-09-19 07:15 | Emergency (ER) | payer MEDICARE ==
[2017-09-12 12:59] VITALS: Wt 160.1 kg
--- NOTE | 2017-09-19 07:23 | ER Report ---
History and Physical Time Seen By MD: 07:23 HPI/ROS CHIEF COMPLAINT: Decreased urine output, unresponsive HISTORY OF PRESENT ILLNESS: Patient is a 77-year-old female with recent admission to the hospital from the through September 16 secondary to chronic congestive heart failure and acute kidney injury. Patient was discharged to [facility]. According to nursing staff she has not had any urine output since September 17 and she is only arousable now to painful stimuli. Patient is nonverbal at this time only moaning to noxious stimuli. Unable to obtain any useful history from the patient. The patient was sent with transfer paperwork listing her as a DO NOT RESUSCITATE status. There is no report or history of trauma. I spoke with the nurse taking care of the patient at [facility]. She states that on the day she was admitted she was talking over the last 24 hours she's become unresponsive with little to no urine output and also not eating. REVIEW OF SYSTEMS: Unable to obtain review of systems as patient is nonverbal at this time. Allergies: Coded Allergies: Penicillins (Verified Allergy, Unknown, 09/11/17) DOESN'T REMEMBER REACTION Home Meds Active Scripts Nystatin (NYAMYC) 15 Gm Powder, 0 GM TP BID for 30 Days, Prov:DEACON ORONA MD 09/16/17 Mirtazapine (MIRTAZAPINE) 15 Mg Tablet, 7.5 MG PO QHS for 30 Days, Prov:DEACON ORONA MD 09/16/17 Venlafaxine Hcl (VENLAFAXINE HCL) 37.5 Mg Tab, 37.5 MG PO QDAY for 30 Days, TAB Prov:DEACON ORONA MD 09/16/17 Bumetanide (BUMETANIDE) 2 Mg Tab, 2 MG PO DAILY for 10 Days, TAB Prov:DEACON ORONA MD 09/16/17 Reported Medications Thyroid (ARMOUR THYROID) 90 Mg Tab, 90 MG PO QDAY, TAB 09/11/17 Past Medical/Surgical History Past medical history significant for chronic diarrhea, congestive heart failure , acute kidney injury, morbid obesity, hypothyroidism, peripheral edema. Patient was recently admitted to the hospital from the through September 14 secondary to congestive heart failure and acute kidney injury. Hx Smoking: No Hx Substance Use Disorder: No Hx Alcohol Use: No Constitutional Vital Sign - Last 24 Hours 09/19/17 09/19/17 09/19/17 09/19/17 07:15 07:18 07:21 07:30 Temp 98.3 Pulse ??? 87 87 Resp 12 15 B/P (MAP) 119/78 (92) 119/78 95/73 (80) Pulse Ox 90 90 O2 Delivery Nasal Cannula 09/19/17 09/19/17 09/19/17 09/19/17 07:33 07:45 08:00 08:15 Pulse 87 88 88 Resp 19 20 16 B/P (MAP) 99/87 (91) Pulse Ox 93 89 90 09/19/17 09/19/17 09/19/17 09/19/17 08:30 08:45 08:54 09:00 Pulse 86 ??? 87 Resp 16 B/P (MAP) 103/93 (96) 100/79 (86) 108/80 (89) Pulse Ox 89 09/19/17 09:06 O2 Flow Rate 5.0 Intake and Output 09/19/17 09/19/17 09/20/17 15:00 23:00 07:00 Output Total 15 ml Balance -15 ml Physical Exam General/Constitutional: Patient is somnolent and arouses to painful stimuli. No evidence of respiratory distress.. He is morbidly obese Head: Normocephalic and atraumatic. Eyes: Conjunctival clear, Ears:External canals are clear. Tympanic membranes are clear with normal landmarks and light reflex. Nares: No rhinorrhea or bleeding. Turbinates are pink and moist. Oropharyngeal: Mucous membranes are moist. There is no pharyngeal erythema or exudate. There are no palatal petechiae. Uvula is midline and symmetrical. Neck: Supple, no adenopathy. Cardiovascular: Heart is regular rate and rhythm there is a 3/6 systolic ejection murmur noted Pulmonary: Lungs are clear to auscultation bilaterally. There are no wheezes, rales, or rhonchi. Chest rise is symmetrical Abdomen: Soft, nontender, protuberant, no guarding or rebound tenderness noted Extremities: No gross deformities, patient with severe peripheral edema Neuro: Patient arouses to painful stimuli, she moans but makes no intelligible words. GCS- E2 V2 M4 Skin: Patient with abdominal candidiasis in the intertriginous areas.; Severe peripheral edema chronic venous stasis changes. Medical Decision Making Data Points Result Diagram: 09/19/17 0832 09/19/17 0832 Laboratory Hematology Test 09/19/17 07:49 09/19/17 08:32 09/19/17 09:00 Whole Blood Glucose 120 mg/DL (75-110) Red Blood Count 6.21 M/uL (4.17-5.56) Mean Corpuscular Volume 89.2 fL (80.0-96.0) Mean Corpuscular Hemoglobin 29.6 pg (26.0-33.0) Mean Corpuscular Hemoglobin Concent 33.2 g/dL (32.0-36.0) Red Cell Distribution Width 20.3 % (11.5-14.5) Mean Platelet Volume 10.2 fL (7.2-11.1) Neutrophils (%) (Auto) 83.2 % (39.4-72.5) Lymphocytes (%) (Auto) 9.2 % (17.6-49.6) Monocytes (%) (Auto) 6.7 % (4.1-12.4) Eosinophils (%) (Auto) 0.5 % (0.4-6.7) Basophils (%) (Auto) 0.4 % (0.3-1.4) Nucleated RBC Relative Count (auto) 0.5 /100WBC Neutrophils # (Auto) 10.5 K/uL (2.0-7.4) Lymphocytes # (Auto) 1.2 K/uL (1.3-3.6) Monocytes # (Auto) 0.8 K/uL (0.3-1.0) Eosinophils # (Auto) 0.1 K/uL (0.0-0.5) Basophils # (Auto) 0.0 K/uL (0.0-0.1) Nucleated RBC Absolute Count (auto) 0.06 K/uL Peripheral Blood Smear No Y/N Prothrombin Time 17.9 seconds (12.0-14.4) Prothromb Time International Ratio 1.45 Activated Partial Thromboplast Time 32 seconds (23-35) Sodium Level 141 mmol/L (137-145) Potassium Level 4.9 mmol/L (3.5-5.0) Chloride Level 100 mmol/L (98-107) Carbon Dioxide Level 26 mmol/L (22-31) Blood Urea Nitrogen 56 mg/dl (7-18) Creatinine 3.40 mg/dl (0.52-1.04) Glomerular Filtration Rate Calc 13.2 Random Glucose 142 mg/dl (75-110) Calcium Level 9.2 mg/dl (8.4-10.2) Total Bilirubin 2.6 mg/dl (0.2-1.3) Aspartate Amino Transf (AST/SGOT) 211 U/L (0-35) Alanine Aminotransferase (ALT/SGPT) 190 U/L (0-56) Alkaline Phosphatase 121 U/L (0-126) Ammonia 22 UMOL/L (9-33) Total Creatine Kinase < 20 U/L (30-135) Troponin I 0.422 ng/ml B-Type Natriuretic Peptide 1190 pg/ml (0-100) Total Protein 6.3 g/dl (6.3-8.2) Albumin 3.0 g/dl (3.5-5.0) Urine Color Brown Urine Clarity Turbid Urine pH Color interference Urine Specific [place] Color interference Urine Protein Color interference Urine Glucose (UA) Color interference Urine Ketones Color interference Urine Blood Color interference Urine Nitrite Color interference Urine Bilirubin Color interference Urine Urobilinogen Color interference Urine Leukocyte Esterase Color interference Urine RBC Tntc /HPF (0-2/HPF) Urine WBC Tntc /HPF (0-5/HPF) Urine Squamous Epithelial Cells Few /LPF (NONE-FEW) Urine Bacteria Many /HPF (NONE-FEW) Urine Mucus None /HPF (NONE-FEW) Chemistry Test 09/19/17 07:49 09/19/17 08:32 09/19/17 09:00 Whole Blood Glucose 120 mg/DL (75-110) White Blood Count 12.6 k/uL (4.5-11.0) Red Blood Count 6.21 M/uL (4.17-5.56) Hemoglobin 18.4 g/dL (12.0-16.0) Hematocrit 55.3 % (34.0-47.0) Mean Corpuscular Volume 89.2 fL (80.0-96.0) Mean Corpuscular Hemoglobin 29.6 pg (26.0-33.0) Mean Corpuscular Hemoglobin Concent 33.2 g/dL (32.0-36.0) Red Cell Distribution Width 20.3 % (11.5-14.5) Platelet Count 114 K/uL (150-450) Mean Platelet Volume 10.2 fL (7.2-11.1) Neutrophils (%) (Auto) 83.2 % (39.4-72.5) Lymphocytes (%) (Auto) 9.2 % (17.6-49.6) Monocytes (%) (Auto) 6.7 % (4.1-12.4) Eosinophils (%) (Auto) 0.5 % (0.4-6.7) Basophils (%) (Auto) 0.4 % (0.3-1.4) Nucleated RBC Relative Count (auto) 0.5 /100WBC Neutrophils # (Auto) 10.5 K/uL (2.0-7.4) Lymphocytes # (Auto) 1.2 K/uL (1.3-3.6) Monocytes # (Auto) 0.8 K/uL (0.3-1.0) Eosinophils # (Auto) 0.1 K/uL (0.0-0.5) Basophils # (Auto) 0.0 K/uL (0.0-0.1) Nucleated RBC Absolute Count (auto) 0.06 K/uL Peripheral Blood Smear No Y/N Prothrombin Time 17.9 seconds (12.0-14.4) Prothromb Time International Ratio 1.45 Activated Partial Thromboplast Time 32 seconds (23-35) Glomerular Filtration Rate Calc 13.2 Calcium Level 9.2 mg/dl (8.4-10.2) Total Bilirubin 2.6 mg/dl (0.2-1.3) Aspartate Amino Transf (AST/SGOT) 211 U/L (0-35) Alanine Aminotransferase (ALT/SGPT) 190 U/L (0-56) Alkaline Phosphatase 121 U/L (0-126) Ammonia 22 UMOL/L (9-33) Total Creatine Kinase < 20 U/L (30-135) Troponin I 0.422 ng/ml B-Type Natriuretic Peptide 1190 pg/ml (0-100) Total Protein 6.3 g/dl (6.3-8.2) Albumin 3.0 g/dl (3.5-5.0) Urine Color Brown Urine Clarity Turbid Urine pH Color interference Urine Specific [place] Color interference Urine Protein Color interference Urine Glucose (UA) Color interference Urine Ketones Color interference Urine Blood Color interference Urine Nitrite Color interference Urine Bilirubin Color interference Urine Urobilinogen Color interference Urine Leukocyte Esterase Color interference Urine RBC Tntc /HPF (0-2/HPF) Urine WBC Tntc /HPF (0-5/HPF) Urine Squamous Epithelial Cells Few /LPF (NONE-FEW) Urine Bacteria Many /HPF (NONE-FEW) Urine Mucus None /HPF (NONE-FEW) Coagulation Test 09/19/17 08:32 Prothrombin Time 17.9 seconds Prothromb Time International Ratio 1.45 Activated Partial Thromboplast Time 32 seconds Urinalysis Test 09/19/17 09:00 Urine Color Brown Urine Clarity Turbid Urine pH Color interference Urine Specific [place] Color interference Urine Protein Color interference Urine Glucose (UA) Color interference Urine Ketones Color interference Urine Blood Color interference Urine Nitrite Color interference Urine Bilirubin Color interference Urine Urobilinogen Color interference Urine Leukocyte Esterase Color interference Urine RBC Tntc /HPF (0-2/HPF) Urine WBC Tntc /HPF (0-5/HPF) Urine Squamous Epithelial Cells Few /LPF (NONE-FEW) Urine Bacteria Many /HPF (NONE-FEW) Urine Mucus None /HPF (NONE-FEW) Microbiology Microbiology Date/Time Source Procedure Growth Status 09/19/17 08:32 Blood Peripheral Draw Blood Culture - Preliminary NO GROWTH SO FAR, SET LATE. REINCUBATED Resulted 09/19/17 08:00 Blood Peripheral Draw Blood Culture - Preliminary NO GROWTH SO FAR, SET LATE. REINCUBATED Resulted EKG/Imaging EKG Interpretation EKG shows sinus rhythm with a ventricular rate of 86 bpm with a right bundle branch block. There is also a right axis deviation. There is T-wave inversion noted throughout the precordial leads. This was compared to an EKG from 2017 and centrally there is no change. Monitor Interpretation: Normal Sinus Rhythm Imaging FACILITY: [facility] PATIENT NAME: Jose Camarena : 1940 MR: [id number] V: [id number] EXAM DATE: ORDERING PHYSICIAN: NILSON CHURCH TECHNOLOGIST: Location: [facility] [place] Patient: Jose Camarena : 1940 Visit/Account:[id number] Date of Sevice: 09/19/2017 CHEST SINGLE AP Indication: ams Comparison: None. Findings: Lungs: Opacity left lung base is unchanged. There is mild blunting of the right costophrenic angle. Mediastinum/pulmonary vasculature: Cardiomegaly is unchanged. Pulmonary vasculature cephalization is unchanged. Bones/soft tissues: Normal. IMPRESSION: 1. Left base opacity, differential diagnosis includes atelectasis, effusion, and pneumonia. 2. Mild blunting of the right costophrenic angle, unchanged. 3. Cardiomegaly with findings consistent with congestive heart failure. Report Dictated By: Benjamin Mac at 09/19/2017 8:00 AM Report E-Signed By: Benjamin Mac at 09/19/2017 8:01 AM WSN:[id number] FACILITY: [facility] PATIENT NAME: Jose Camarena : 1940 MR: [id number] V: [id number] EXAM DATE: ORDERING PHYSICIAN: NILSON CHURCH TECHNOLOGIST: Location: [facility] [place] Patient: Jose Camarena : 1940 Visit/Account:[id number] Date of Sevice: 09/19/2017 HEAD W/O CONTRAST EXAMINATION: CT head/brain without contrast HISTORY: Altered mental status TECHNIQUE: Contiguous axial images were obtained from the skull base to the vertex without intravenous contrast. One of the following dose optimization techniques was utilized in the performance of this exam: Automated exposure control; adjustment of the mA and/ or kV according to the patient's size; or use of an iterative reconstruction technique. Specific details can be referenced in the facility's radiology CT exam operational policy. COMPARISON STUDIES: None FINDINGS: Ventricles/sulci/fissures: Negative Masses/hemorrhage/midline shift: Negative White matter: Negative Young-white differentiation: Minimal punctate physiologic calcifications in the right basal ganglia probable Extra-axial spaces: Negative Dural venous sinuses/arterial structures: Negative Skull base/calvarium: Negative Visualized mastoid air cells/paranasal sinuses: Negative IMPRESSION: 1. Negative CT scan for acute intracranial pathology Report Dictated By: Joao Loving MD at 09/19/2017 9:09 AM Report E-Signed By: Joao Loving MD at 09/19/2017 9:15 AM WSN:[id number] ED Course/Re-evaluation Clinical Indication for ER IV: IV Access ED Course 09/19/2017 8:05:57 am Plan at this time will be medical workup including CT of the head given the patient's decreased level of responsiveness. Vital signs are stable patient is maintaining her airway. Gag reflex is intact. Apparently the patient's sister has arrived to the emergency department I will speak with her with regard to the patient's history. I spoke with Dr. Lea from [facility]. History physical exam all pertinent data were reviewed. We will transfer patient at this time for higher level of care. Family was made aware and agrees with transport at this time Re-evaluation 09/19/2017 8:38:14 am spoke with the patient's sister who knows the patient and states that she's had a rapid decline in the last 48 hours. She affirms that the patient is DNR/DNI but not comfort care. Apparently the patient's daughter is coming from [place]. The daughter is estranged from the mother for the past 25 years. Catheter urine specimen is quite brown and dark. We will give 500 mL bolus of normal saline. Patient will likely require admission. UA positive for bacteria; culture pending; will start 500mg IV levaquin Decision to Disposition Date: Sep 19, 2017 Decision to Disposition Time: 09:47 Depart Departure Latest Vital Signs Vital Signs Date Time Temp Pulse Resp B/P (MAP) Pulse Ox O2 Delivery O2 Flow Rate FiO2 09/19/17 09:06 5.0 09/19/17 09:00 87 108/80 (89) 09/19/17 08:30 16 89 09/19/17 07:21 98.3 Nasal Cannula Impression: Primary Impression: Congestive heart failure Additional Impressions: Elevated troponin Urinary tract infection Condition: Improved Disposition: XFER TO [facility] (to [facility]) Problem Qualifiers Primary Impression: Congestive heart failure Heart failure type: unspecified Heart failure chronicity: acute on chronic Qualified Codes: I50.9 - Heart failure, unspecified Additional Impressions: Urinary tract infection Urinary tract infection type: acute cystitis Hematuria presence: without hematuria Qualified Codes: N30.00 - Acute cystitis without hematuria NILSON CHURCH MD Sep 19, 2017 07:23
--- NOTE | 2017-09-19 07:50 | EKG ---
FACILITY: [facility] [place] PATIENT NAME: DARÍO AGUIRRE : [id number] MR: [id number] V: [id number] EXAM DATE: ORDERING PHYSICIAN: NILSON CHURCH TECHNOLOGIST: ASAEL Ramos Reason : Blood Pressure : / mmHG Vent. Rate : 086 BPM Atrial Rate : 086 BPM P-R Int : 166 ms QRS Dur : 142 ms QT Int : 400 ms P-R-T Axes : 047 107 000 degrees QTc Int : 478 ms Normal sinus rhythm Right bundle branch block Inferior infarct , age undetermined Anteroseptal infarct , age undetermined Abnormal ECG When compared with ECG of 11-SEP-2017 19:01, Relatively unchanged Confirmed by DEACON ORONA ([id number]) on 09/19/2017 3:49:13 PM Referred By: Confirmed By:DEACON ORONA
--- NOTE | 2017-09-19 08:05 | RADIOLOGY IMAGING REPORT ---
FACILITY: [facility] PATIENT NAME: Jose Camarena : 1940 MR: [id number] V: [id number] EXAM DATE: ORDERING PHYSICIAN: NILSON CHURCH TECHNOLOGIST: Location: [facility] Patient: Jose Camarena : 1940 Visit/Account:[id number] Date of Sevice: 09/19/2017 CHEST SINGLE AP Indication: ams Comparison: None. Findings: Lungs: Opacity left lung base is unchanged. There is mild blunting of the right costophrenic angle. Mediastinum/pulmonary vasculature: Cardiomegaly is unchanged. Pulmonary vasculature cephalization is unchanged. Bones/soft tissues: Normal. IMPRESSION: 1. Left base opacity, differential diagnosis includes atelectasis, effusion, and pneumonia. 2. Mild blunting of the right costophrenic angle, unchanged. 3. Cardiomegaly with findings consistent with congestive heart failure. Report Dictated By: Benjamin Mac at 09/19/2017 8:00 AM Report E-Signed By: Benjamin Mac at 09/19/2017 8:01 AM WSN:[id number]
[2017-09-19] MEDS ORDERED: NS(*) 0.9% 500 ML BAG 500 ML IV ONE (08:25)
[2017-09-19 08:46] LABS: PLATELET COUNT, AUTOMATED 114 K/uL (150-450)
[2017-09-19] MEDS ORDERED: ENOXAPARIN 100 MG/ML SYR SC ONE (09:15)
[2017-09-19] MEDS ORDERED: ASPIRIN 81 MG CHEW PO ONE (09:15)
--- NOTE | 2017-09-19 09:18 | RADIOLOGY IMAGING REPORT ---
FACILITY: [facility] PATIENT NAME: Jose Camarena : 1940 MR: [id number] V: [id number] EXAM DATE: ORDERING PHYSICIAN: NILSON CHURCH TECHNOLOGIST: Location: [facility] [place] Patient: Jose Camarena : 1940 Visit/Account:[id number] Date of Sevice: 09/19/2017 HEAD W/O CONTRAST EXAMINATION: CT head/brain without contrast HISTORY: Altered mental status TECHNIQUE: Contiguous axial images were obtained from the skull base to the vertex without intravenou s contrast. One of the following dose optimization techniques was utilized in the performance of this exam: Autom ated exposure control; adjustment of the mA and/or kV according to the patient's size; or use of an i terative reconstruction technique. Specific details can be referenced in the facility's radiology C T exam operational policy. COMPARISON STUDIES: None FINDINGS: Ventricles/sulci/fissures: Negative Masses/hemorrhage/midline shift: Negative White matter: Negative Young-white differentiation: Minimal punctate physiologic calcifications in the right basal ganglia pr obable Extra-axial spaces: Negative Dural venous sinuses/arterial structures: Negative Skull base/calvarium: Negative Visualized mastoid air cells/paranasal sinuses: Negative IMPRESSION: 1. Negative CT scan for acute intracranial pathology Report Dictated By: Joao Loving MD at 09/19/2017 9:09 AM Report E-Signed By: Joao Loving MD at 09/19/2017 9:15 AM WSN:[id number]
[2017-09-19 09:28] LABS: INR 1.45
[2017-09-19] MEDS ORDERED: LEVOFLOXACIN/D5W*500 MG/100 ML 100 ML IVPB ONE (09:30)
== END 2017-09-19 10:45 | disposition short-term general hospital (02) ==
LOC: ER 07:16
DX: I50.9 Heart failure, unspecified (principal); N30.00 Acute cystitis without hematuria; R79.89 Other specified abnormal findings of blood chemistry; I45.10 Unspecified right bundle-branch block; R94.31 Abnormal electrocardiogram [ECG] [EKG]; B96.20 Unspecified Escherichia coli [E. coli] as the cause of diseases classified elsewhere
CPT/HCPCS: 36415; 36416; 70450; 71045; 81001; 82140; 82550; 82948; 83880; 84443; 84484; 85025; 85610; 85730; 87040; 87088; 93005; 96361; 96365; 96372; 99285; A9270; C1758; J1650; J1956; J7040; 82040; 82247; 82310; 82374; 82435; 82565; 82947; 84075; 84132; 84155; 84295; 84450; 84460; 84520; 87077; 87186

== ENCOUNTER → 2017-09-19 | Outpatient (CLI) | payer MEDICARE, OTHER ==
[2017-09-12 12:59] VITALS: BMI 69.0
== END ==
LOC: AMB 10:15
PROVIDERS: ATTEND Nurse Practitioner
DX: I21.4 Non-ST elevation (NSTEMI) myocardial infarction (principal); J18.9 Pneumonia, unspecified organism; N39.0 Urinary tract infection, site not specified
CPT/HCPCS: A0425; A0426

== ENCOUNTER → 2017-09-19 | Outpatient (CLI) | payer MEDICARE ==
[2017-09-12 12:59] VITALS: BMI 69.0
== END ==
LOC: AMB 06:54
PROVIDERS: ATTEND Nurse Practitioner
DX: R53.83 Other fatigue (principal); R34 Anuria and oliguria
CPT/HCPCS: A0425; A0429

== ENCOUNTER → 2018-06-07 | Outpatient (CLI) | payer MEDICARE, MEDICAID, OTHER ==
[2017-09-12 12:59] VITALS: BMI 69.0
[~2018-06-07] MED LIST changes: +ACET500T68 PO; +BUME1TAB19 PO; +CAR6.25 PO; +LEVO175T42 PO; +PANT40TA65 PO; +RIVA15TA PO
--- NOTE | 2018-06-07 18:02 | RADIOLOGY IMAGING REPORT ---
FACILITY: [facility] [place] PATIENT NAME: Jose Camarena : 1940 MR: [id number] V: [id number] EXAM DATE: ORDERING PHYSICIAN: GURMEET TERRY TECHNOLOGIST: [place] [facility] [place] Cama[place] : 1940 Visit/Account:[id number] Date of Sevice: 06/07/2018 Examination: Ultrasound of the kidneys and urinary bladder Comparison: None. History: Kidney injury. Findings: Standard ultrasound of the kidneys and urinary bladder is performed. Right kidney: 9.1 x 3.8 x 4.8 cm . Corticomedullary echogenicity is normal. No renal mass, echogenic stone, or hydronephrosis. Cortical arterial resistive index is mildly elevated at 0.8. Left kidney: 9.2 x 4.3 x 4.4 cm . Corticomedullary echogenicity is normal. No renal mass, echogenic stone, or hydronephrosis. Cortical arterial resistive index is 0.6. Urinary bladder: Nearly empty. Visualized aorta and IVC: Patent. Other: Small amount of simple appearing free fluid along the inferior liver. IMPRESSION: 1. No renal mass or hydronephrosis. 2. Right kidney mildly increased cortical arterial resistive index is suggestive of medical renal dis ease. 3. Small amount of nonspecific perihepatic fluid. Report Dictated By: Yonathan Beebe MD at 06/07/2018 5:55 PM Report E-Signed By: Yonathan Beebe MD at 06/07/2018 5:57 PM WSN:[id number]
== END ==
LOC: US 01:11
PROVIDERS: ATTEND Internal Medicine Nephrology
DX: Z13.9 Encounter for screening, unspecified (principal); N17.9 Acute kidney failure, unspecified; I51.9 Heart disease, unspecified; I27.81 Cor pulmonale (chronic); I27.20 Pulmonary hypertension, unspecified; R60.0 Localized edema; E66.01 Morbid (severe) obesity due to excess calories
CPT/HCPCS: 36415; 76705; 82040; 82247; 82310; 82374; 82435; 82550; 82565; 82570; 82947; 83735; 84075; 84132; 84155; 84156; 84295; 84450; 84460; 84520

== ENCOUNTER → 2018-06-07 | Outpatient (CLI) | payer MEDICARE, MEDICAID, OTHER ==
[2017-09-12 12:59] VITALS: BMI 69.0
== END ==
LOC: AMB 13:58
PROVIDERS: ATTEND Nurse Practitioner
DX: R53.1 Weakness (principal); E66.9 Obesity, unspecified
CPT/HCPCS: A0425; A0428

== ENCOUNTER → 2018-06-07 | Outpatient (CLI) | payer MEDICARE, MEDICAID, OTHER ==
[2017-09-12 12:59] VITALS: BMI 69.0
== END ==
LOC: AMB 16:41
PROVIDERS: ATTEND Nurse Practitioner
DX: R53.1 Weakness (principal)
CPT/HCPCS: A0425; A0428

== ENCOUNTER → 2018-06-21 | Outpatient (REF) | payer MEDICARE, OTHER, MEDICAID ==
[2017-09-12 12:59] VITALS: BMI 69.0
== END ==
LOC: ZZLCC 08:56
PROVIDERS: ATTEND Family Medicine
DX: I50.9 Heart failure, unspecified (principal); I25.10 Atherosclerotic heart disease of native coronary artery without angina pectoris; N17.9 Acute kidney failure, unspecified
CPT/HCPCS: 82040; 82247; 82310; 82374; 82435; 82565; 82947; 83880; 84075; 84132; 84155; 84295; 84450; 84460; 84520; 85027

== ENCOUNTER → 2018-06-30 | Outpatient (REF) | payer MEDICARE, OTHER, MEDICAID ==
[2017-09-12 12:59] VITALS: BMI 69.0
== END ==
LOC: ZZSENDIN 16:12
PROVIDERS: ATTEND Family Medicine
DX: I50.30 Unspecified diastolic (congestive) heart failure (principal)
CPT/HCPCS: 82310; 82374; 82435; 82565; 82947; 84132; 84295; 84520

== ENCOUNTER → 2018-07-11 | Outpatient (REF) | payer MEDICARE, OTHER, MEDICAID ==
[2017-09-12 12:59] VITALS: BMI 69.0
== END ==
LOC: ZZLCC 06:26
PROVIDERS: ATTEND Family Medicine
DX: I50.9 Heart failure, unspecified (principal); N17.9 Acute kidney failure, unspecified
CPT/HCPCS: 82565

== ENCOUNTER → 2018-07-22 | Outpatient (REF) | payer MEDICARE, OTHER, MEDICAID ==
[2017-09-12 12:59] VITALS: BMI 69.0
== END ==
LOC: ZZLCC 16:19
PROVIDERS: ATTEND Family Medicine
DX: Z02.9 Encounter for administrative examinations, unspecified (principal)

== ENCOUNTER → 2018-07-22 | Outpatient (REF) | payer MEDICARE, OTHER, MEDICAID ==
[2017-09-12 12:59] VITALS: BMI 69.0
== END ==
LOC: ZZSENDIN 16:09
PROVIDERS: ATTEND Family Medicine
DX: I50.30 Unspecified diastolic (congestive) heart failure (principal); B96.20 Unspecified Escherichia coli [E. coli] as the cause of diseases classified elsewhere; N17.9 Acute kidney failure, unspecified; E66.01 Morbid (severe) obesity due to excess calories; E78.5 Hyperlipidemia, unspecified; I25.10 Atherosclerotic heart disease of native coronary artery without angina pectoris; R09.02 Hypoxemia; R60.9 Edema, unspecified; R94.4 Abnormal results of kidney function studies; M62.81 Muscle weakness (generalized)
CPT/HCPCS: 81001; 82310; 82374; 82435; 82565; 82947; 84132; 84295; 84520; 87077; 87088; 87186

== ENCOUNTER → 2018-08-09 | Outpatient (REF) | payer MEDICARE, OTHER, MEDICAID ==
[2017-09-12 12:59] VITALS: BMI 69.0
== END ==
LOC: ZZLCC 15:12
PROVIDERS: ATTEND Family Medicine
DX: I50.31 Acute diastolic (congestive) heart failure (principal); R30.0 Dysuria; I50.9 Heart failure, unspecified; N17.9 Acute kidney failure, unspecified
CPT/HCPCS: 81001; 82310; 82374; 82435; 82565; 82947; 84132; 84295; 84520; 87088

== ENCOUNTER → 2018-08-22 | Outpatient (REF) | payer MEDICARE, OTHER, MEDICAID ==
[2017-09-12 12:59] VITALS: BMI 69.0
== END ==
LOC: ZZLCC 09:12
PROVIDERS: ATTEND Family Medicine
DX: M10.9 Gout, unspecified (principal); I50.31 Acute diastolic (congestive) heart failure
CPT/HCPCS: 82310; 82374; 82435; 82565; 82947; 84132; 84295; 84520; 84550